=== PATIENT | male | born 1970 | race Caucasian/White ===

== ENCOUNTER 2018-02-21 08:11 | Outpatient (CLI) | END 2018-02-21 08:12 | disposition home or self-care (01) | LOC: WOUND 08:11 | PROVIDERS: ATTEND Nurse Practitioner Family | DX: S80.812A Abrasion, left lower leg, initial encounter (principal); I10 Essential (primary) hypertension; E78.5 Hyperlipidemia, unspecified; E11.9 Type 2 diabetes mellitus without complications; I87.2 Venous insufficiency (chronic) (peripheral) | CPT/HCPCS: 87070; 87186 ==

== ENCOUNTER 2018-02-28 08:28 | Outpatient (CLI) | END 2018-02-28 08:29 | disposition home or self-care (01) | LOC: WOUND 08:28 | PROVIDERS: ATTEND Nurse Practitioner Family | DX: S80.812A Abrasion, left lower leg, initial encounter (principal); I10 Essential (primary) hypertension; E78.5 Hyperlipidemia, unspecified; E11.9 Type 2 diabetes mellitus without complications; I87.2 Venous insufficiency (chronic) (peripheral) ==

== ENCOUNTER 2018-03-14 08:29 | Outpatient (CLI) | payer OTHER | END 2018-03-14 08:30 | disposition home or self-care (01) | LOC: WOUND 08:29 | PROVIDERS: ATTEND Nurse Practitioner Family | DX: S80.812A Abrasion, left lower leg, initial encounter (principal); I10 Essential (primary) hypertension; E78.5 Hyperlipidemia, unspecified; E11.9 Type 2 diabetes mellitus without complications; I87.2 Venous insufficiency (chronic) (peripheral) | CPT/HCPCS: 11042 ==

== ENCOUNTER 2018-03-21 08:03 | Outpatient (CLI) | END 2018-03-21 08:04 | disposition home or self-care (01) | LOC: WOUND 08:03 | PROVIDERS: ATTEND Nurse Practitioner Family | DX: S80.812A Abrasion, left lower leg, initial encounter (principal); I10 Essential (primary) hypertension; E78.5 Hyperlipidemia, unspecified; E11.9 Type 2 diabetes mellitus without complications; I87.2 Venous insufficiency (chronic) (peripheral) | CPT/HCPCS: 11042 ==

== ENCOUNTER 2018-03-28 07:41 | Outpatient (CLI) | payer OTHER | END 2018-03-28 07:42 | disposition home or self-care (01) | LOC: WOUND 07:41 | PROVIDERS: ATTEND Nurse Practitioner Family | DX: S80.812A Abrasion, left lower leg, initial encounter (principal); I10 Essential (primary) hypertension; E78.5 Hyperlipidemia, unspecified; E11.9 Type 2 diabetes mellitus without complications; I87.2 Venous insufficiency (chronic) (peripheral) | CPT/HCPCS: 11042 ==

== ENCOUNTER 2018-04-04 07:59 | Outpatient (CLI) | payer OTHER | END 2018-04-04 08:00 | disposition home or self-care (01) | LOC: WOUND 07:59 | PROVIDERS: ATTEND Nurse Practitioner Family | DX: S80.812A Abrasion, left lower leg, initial encounter (principal); I10 Essential (primary) hypertension; E78.5 Hyperlipidemia, unspecified; E11.9 Type 2 diabetes mellitus without complications; I87.2 Venous insufficiency (chronic) (peripheral) ==

== ENCOUNTER 2018-04-11 08:01 | Outpatient (CLI) | payer OTHER | END 2018-04-11 08:02 | disposition home or self-care (01) | LOC: WOUND 08:01 | PROVIDERS: ATTEND Nurse Practitioner Family | DX: S80.812A Abrasion, left lower leg, initial encounter (principal); I10 Essential (primary) hypertension; E78.5 Hyperlipidemia, unspecified; E11.9 Type 2 diabetes mellitus without complications; I87.2 Venous insufficiency (chronic) (peripheral) | CPT/HCPCS: 99213 ==

== ENCOUNTER 2018-12-19 07:53 | Outpatient (CLI) | END 2018-12-19 07:54 | disposition home or self-care (01) | LOC: WOUND 07:53 | PROVIDERS: ATTEND Nurse Practitioner Family | DX: L03.116 Cellulitis of left lower limb (principal); I87.312 Chronic venous hypertension (idiopathic) with ulcer of left lower extremity; L97.221 Non-pressure chronic ulcer of left calf limited to breakdown of skin | CPT/HCPCS: 87070; 87186 ==